=== PATIENT | female | born 2000 | race Caucasian/White ===

== ENCOUNTER 2021-09-12 02:43 | Emergency (ER) | payer SELFPAY ==
[2021-09-12 02:51] VITALS: BP 119/71; PULSE 88; RESP 18; TEMP 36.4; O2SAT 99
[2021-09-12 03:11] LABS: Appearance Urine Cloudy (Clear); Bilirubin Urine 3+ (Negative); Blood Urine 3+ (Negative); Color Urine Red (Yellow); Glucose Urine Trace (Negative); Ketones Urine 3+ (Negative); Leukocyte Esterase Urine 3+ (Negative); Nitrite Urine Positive (Negative); Protein Urine 3+ (Negative); Urobilinogen Urine >=8.0 (0.2-1.0); pH Urine 8.5 (5.0-8.5)
[2021-09-12 03:27] LABS: Bacteria Urine Few; RBC Urine >100 (0-2); Squamous Epithelial Cell Urine Few (None-Few)
--- NOTE | 2021-09-12 03:34 | ED_ITS ---
HPI - Female Genitourinary General Time Seen by Provider: 03:00 Date Seen: 09/12/21 Chief complaint: Unspecified Complaint, Adult Stated complaint: Urinating blood Time Seen by Provider: 09/12/21 02:59 Source: patient, family, RN notes reviewed and old records reviewed Mode of arrival: ambulatory Limitations: no limitations History of Present Illness HPI Narrative: Kailyn is a very pleasant 21-year-old female with history of IUD in place otherwise healthy who comes to the emergency room with her mom with complaints regarding blood in her urine. She states that yesterday she noticed a bit of blood in her urine but thought this may be residual blood from her recent menses. She had finished her period on Wednesday the 08 of September. She denied any urgency or at pain at that time. Tonight she awoke and she is urinating blood and it is associated with pain at the end of the urination. She has not had any fever but thinks she may have chills. Briefly she was noting an upset stomach but states that she thinks this is from the stress of being here. She has no history of kidney stones. She is otherwise healthy. She is sexually active and has had recent sex. Her last period was normal. Related Data Previous Rx's Medication Instructions Recorded nitrofurantoin 100 mg PO Q12H 5 Days #10 cap 09/12/21 monohydrate/macrocrystals 100 mg capsule (Macrobid) Allergies Allergy/AdvReac Type Severity Reaction Status Date / Time Penicillins Allergy Intermediate Verified 09/12/21 02:56 Review of Systems Const: Reports: chills; Denies: fever GI: Denies: abdominal pain, nausea or vomiting : Reports: painful urination, urinary frequency, urinary urgency and blood in urine Musculo: Denies: back pain PFSH PFSH Social History Smoking Status: Never smoker Do you use any of these nicotine containing products: None Second hand tobacco smoke exposure: No How often do you have a drink containing alcohol: never How often do you have six or more drinks on one occasion: Never AUDIT-C Alcohol total score: 0 Non-prescribed substance use: denies use service: No Exam Const: Vital Signs, click to edit/add: Vital Signs - 24 hr 09/12/21 02:51 Temperature 97.5 F L Pulse Rate [Left] 88 Respiratory Rate 18 Blood Pressure [Ri ght Upper Arm] 119/71 Pulse Oximetry 99 Documenting provider has reviewed patient's vital signs: yes Common normals: no apparent distress, average body habitus and oriented x3 General appearance: cooperative, comfortable and well kempt Eye: General eye: normal appearance of both eyes Neck & C-Spine: Common normals: full ROM Resp: Common normals: normal respiratory effort and clear to auscultation bilaterally Effort & inspection: able to speak in complete sentences Auscultation: clear to auscultation bilaterally Cardio: Common normals: regular rate and regular rhythm Rate: regular rate Rhythm: regular rhythm GI: Common normals: soft to palpation and non-tender Palpation: soft : Common normals: no CVA tenderness Bladder/kidney exam: no CVA tender ness Back & Pelvis: Common normals: no CVA tenderness Extremity: Common normals: normal to inspection Neuro: Common normals: oriented x3 Psych: Appearance: well kempt Course Course Hospital Course: Patient will receive Pyridium 200 mg p.o.. While we are awaiting urinary results. I strongly suspect UTI. Patient does not appear toxic here in the emergency room. Vital Signs Vital signs: Initial Vital Signs Temperature 97.5 F L 09/12/21 02:51 Temperature Source Temporal Artery Scan 09/12/21 02:51 Pulse Rate 88 09/12/21 02:51 Pulse Rhythm 09/12/21 02:51 Respiratory Rate 18 09/12/21 02:51 Blood Pressure 119/71 09/12/21 02:51 Blood Pressure Mean 87 09/12/21 02:51 Blood Pressure Position Semi-Fowlers 09/12/21 02:51 Pulse Oximetry 99 09/12/21 02:51 Oxygen Delivery Method 09/12/21 02:51 Vital Signs Temperature 97.5 F L 09/12/21 02:51 Pulse Rate 88 09/12/21 02:51 Respiratory Rate 18 09/12/21 02:51 Blood Pressure 119/71 09/12/21 02:51 Pulse Oximetry 99 09/12/21 02:51 Temperature 97.5 F L 09/12/21 02:51 Pulse Rate 88 09/12/21 02:51 Respiratory Rate 18 09/12/21 02:51 Blood Pressure 119/71 09/12/21 02:51 Pulse Oximetry 99 09/12/21 02:51 MDM - Female Genitourinary MDM Narrative Medical decision making narrative: 1. UTI-urinalysis shows hematuria only a few white cells. However her history strongly suggest UTI. Will give her 1st dose of Macrobid 100 mg p.o. in the ED. Further doses per her pharmacy. Will use Macrobid 100 mg p.o. b.i.d. x5 days. Push fluids as much as possible. Return to the emergency room for worsening symptoms especially fever, vomiting. 2. Disposition-home with mother. Strongly recommend post coital urination. Lab Data Labs: Lab Results 09/12/21 Range/Units 03:07 Urine Color Red A (Yellow) Urine Appearance Cloudy A (Clear) Urine pH 8.5 (5.0-8.5) Ur Specific [place] 1.010 (1.000-1.030) Urine Protein 3+ A (Negative) Urine Glucose (UA) Trace A (Negative) Urine Ketones 3+ A (Negative) Urine Blood 3+ A (Negative) Urine Nitrite Positive A (Negative) Urine Bilirubin 3+ A (Negative) Urine Urobilinogen >=8.0 (0.2-1.0) Ur Leukocyte Esterase 3+ A (Negative) Urine RBC >100 A (0-2) Urine WBC 2-5 (0-5) Ur Squamous Epith Cells Few (None-Few) Urine Bacteria Few A (None) Discharge Plan Discharge Clinical Impression: UTI (urinary tract infection), Hematuria Patient Disposition: Home w/ Parent or Adult Condition: Unchanged Additional Instructions: Continue Macrobid tomorrow morning. We will await the results of your culture and should you need a different antibiotic, call you. Fluids as much as possible. Seek medical attention for fever, vomiting and worsening symptoms. Prescriptions: New nitrofurantoin monohyd/m-cryst [Macrobid] 100 mg capsule 100 mg PO Q12H 5 Days Qty: 10 0RF Rx Instructions: must administer with a meal/food Stand Alone Forms: MyHealth Info Instructions
[2021-09-12] MEDS: NITROFURANTOIN MONOHYD MACRO 100 MG CAPSULE PO (03:42)
== END 2021-09-12 08:00 | disposition home or self-care (01) ==
PROVIDERS: Emergency Provider Family Medicine
DX: N39.0 Urinary tract infection, site not specified (principal)
CPT/HCPCS: 81001; 87086; 87186; 99282; 99283; 99284; A9270